=== PATIENT | male | born 1980 | race American Indian/Alaskan Native ===

== ENCOUNTER 2020-10-30 04:37 | Emergency (ER) | payer SELFPAY ==
[2020-10-30] MEDS ORDERED: ACETAMINOPHEN 325 MG TAB PO ONE (06:22)
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
[2020-10-30 06:56] LABS: Hematocrit 49.1 % (35.5-45.6); Hemoglobin 15.6 gm/dl (11.8-15.2); Mean Corpuscular HGB Conc 32 % (32-34); Mean Corpuscular Volume 89 fl (84-94); Platelet Count 325 K/mm3 (140-440); Red Cell Distribution Width 14.8 % (13.2-15.2)
[2020-10-30 07:11] LABS: BUN/Creatinine Ratio 17; Blood Urea Nitrogen 15 mg/dL (9-20); Hemolysis Index 6
--- NOTE | 2020-10-30 07:59 | Cat Scan Report ---
CT HEAD WITHOUT CONTRAST INDICATION / CLINICAL INFORMATION: Headache for one month. TECHNIQUE: All CT scans at this location are performed using CT dose reduction for ALARA by means of automated exposure control. COMPARISON: None available. FINDINGS: HEMORRHAGE: None. EXTRA-AXIAL SPACES: Normal in size and morphology for the patient's age. VENTRICULAR SYSTEM: Normal in size and morphology for the patient's age. CEREBRAL PARENCHYMA: No significant abnormality. No acute territorial infarct. MIDLINE SHIFT / HERNIATION: None. CEREBELLUM / BRAINSTEM: No significant abnormality. ORBITS: There is a metallic foreign body in the right orbit SOFT TISSUES: No significant abnormality. SKULL: No significant abnormality. PARANASAL SINUSES / MASTOID AIR CELLS: Normal as visualized. ADDITIONAL FINDINGS: None. IMPRESSION: 1. No acute intracranial abnormality. Signer Name: Miles Painter MD Signed: 10/30/2020 7:54 AM Workstation Name: [id number]
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
[2020-10-30 10:54] VITALS: BP 124/76
== END 2020-10-30 10:54 | disposition home or self-care (01) ==
LOC: ED 04:37
DX: R51.9 Headache, unspecified (principal); G89.29 Other chronic pain; F17.200 Nicotine dependence, unspecified, uncomplicated; Z79.899 Other long term (current) drug therapy
CPT/HCPCS: 36415; 70450; 80048; 85027